=== PATIENT | female | born 2000 | race Two or more races ===

== ENCOUNTER 2024-07-25 19:40 | Emergency (ER) | payer MEDICAID, SELFPAY ==
[2024-07-25 19:41] VITALS: BMI 31.1
[2024-07-25 20:00] VITALS: BP 125/80; PULSE 73; RESP 16; TEMP 36.9; O2SAT 98
--- NOTE | 2024-07-25 20:00 | XR_ITS ---
Examination: Complete OB ultrasound, less than 14 weeks, transabdominal Date and time of exam: July 25, 2024 2038 hrs. Indications: Pelvic pain and vaginal bleeding beginning today Technique: Obstetrical ultrasound images less than 14 weeks performed via transabdominal imaging Findings: A normal shaped single intrauterine gestation is present in the uterus. pole 6.9 cm corresponds to 13 weeks 1 day gestational age Cardiac motion 144 BPM Ultrasonographic survey of visible and placental structures unremarkable. Amniotic fluid volume appears appropriate for this estimated gestational age. Right ovary 2.3 x 1.5 x 1.9 cm arterial flow Left ovary 3.2 x 1.7 x 3.6 cm arterial flow Impression: Viable intrauterine gestation 13 weeks 1 day.
--- NOTE | 2024-07-25 20:00 | XR_ITS ---
Examination: Retroperitoneal ultrasound, complete Technique: Multiple high resolution grayscale images of the retroperitoneum obtained, including kidneys and bladder. Exam date and time:July 25, 20249 hrs. Indications: Bilateral flank pain beginning several weeks ago Findings: Right kidney 11.6 x 4.4 x 4.9 cm renal cortex 1.6 cm Left kidney 12.1 x 5.4 x 5.4 cm cortex 2.4 cm Mild renal parenchymal scar formation No hydronephrosis No bladder mass or bladder calculi Bladder prevoid volume 135 cc postvoid volume 1 cc Impression: Mild bilateral renal parenchymal scar formation No hydronephrosis or renal calculi
--- NOTE | 2024-07-25 20:02 | PD.EDRME ---
Rapid Medical Screening Exam RME Arrival date/time: 07/25/24 19:40 24 year old female present to ed for c/o of vag bleeding/abd pain + I have greeted and performed a focused initial assessment of this patient. A comprehensive ED assessment and evaluation of the patient, analysis of all test results, and completion of the medical decision making process will be conducted by additional ED providers. Chief Complaint: Vaginal Bleeding Time Seen by Provider: 07/25/24 19:48 Vital signs: Vital Signs Temperature 98.4 F 07/25/24 20:00 Pulse Rate 73 07/25/24 20:00 Respiratory Rate 16 07/25/24 20:00 Blood Pressure 125/80 07/25/24 20:00 Pulse Oximetry (%) 98 07/25/24 20:00 Oxygen Delivery Method Room Air 07/25/24 20:00
[2024-07-25 20:51] LABS: Basophils % (Auto) 0 % (0-2.5); Eosinophils % (Auto) 0 % (0-10); Hematocrit 37.6 % (36.0-46.0); Hemoglobin 12.6 g/dL (12.0-16.0); Immature Granulocytes % (Auto) 0 % (0-0); Immature Granulocytes Auto 0.02 Thou/mm3 (0.00-0.00); Lymphocytes # (Auto) 2.7 Thou/mm3 (1.0-4.8); Lymphocytes % (Auto) 25 % (10-50); Mean Corpuscular HGB Conc 33.5 g/dl (31.0-37.0); Mean Corpuscular Hemoglobin 27.3 pg (25.0-35.0); Mean Corpuscular Volume 82 fL (80-100); Monocytes # (Auto) 0.7 Thou/mm3 (0.0-0.8); Monocytes % (Auto) 7 % (0-12); Neutrophils # (Auto) 7.1 Thou/mm3 (1.8-7.7); Neutrophils % (Auto) 67 % (37-80); Nucleated Red Blood Cell % 0 /100 WBC (0); Platelet Count 325 Thou/mm3 (140-440); RDW Standard Deviation 41.3 fL (36.4-46.3); Red Blood Count 4.61 Miln/mm3 (4.00-5.20); White Blood Count 10.6 Thou/mm3 (3.6-11.0)
[2024-07-25 21:28] VITALS: BP 127/81; PULSE 75; RESP 16; TEMP 36.9; O2SAT 98
[2024-07-25 21:46] LABS: Collection Type, Urine Voided; WBC,Urine 0 /hpf (0-5)
[2024-07-25 21:48] LABS: Alanine Aminotransferase 14 U/L (10-49); Albumin, Serum 4.5 gm/dL (3.5-5.0); Albumin/Globulin Ratio 1.6 (1.2-2.2); Alkaline Phosphatase 78 U/L (46-116); Anion Gap 8 (7-16); Aspartate Amino Transferase 15 U/L (0-34); BUN/Creatinine Ratio 12 Ratio (12-20); Bilirubin,Total 0.5 mg/dL (0.3-1.2); Blood Urea Nitrogen 7 mg/dL (9-23); Calcium 9.9 mg/dL (8.3-10.6); Calcium (Corrected) 9.9 mg/dL (8.5-10.1); Carbon Dioxide 22.7 mMol/L (20.0-31.0); Chloride 104 mMol/L (98-107); Creatinine (Component) 0.6 mg/dL (0.6-1.3); Estimated Creatinine Clearance 131.5 mL/min (>60); Globulin 2.9 gm/dL (2.3-3.5); Glucose 82 mg/dL (74-106); Osmolality,Calculated 267 (275-295); Potassium 3.7 mMol/L (3.4-5.1); Sodium 135 mMol/L (136-145); Total Protein 7.4 gm/dL (5.7-8.2); eGFR > 60 See Note
[2024-07-25 22:00] LABS: Bacteria,Urine Rare; Bilirubin,Urine Negative (Negative); Blood,Urine 1+ (Negative); Clarity,Urine Clear (Clear/Hazy); Color,Urine Lt-Yellow (Lt Yel-Yel); Glucose, Urine Negative (Negative); Ketones,Urine 2+ (Negative); Leukocyte Esterase,Urine Negative (Negative); Nitrite,Urine Negative (Negative); Protein,Urine Negative (Neg - Trace); RBC,Urine 1 /hpf (0-3); Squamous Epithelial Cell,Urine 1 /hpf (0-5); Urobilinogen,Urine Negative mg/dL (0.0-1.0)
[2024-07-25 22:05] LABS: Beta HCG,Quantitative 137868 mIU/mL (<5.0)
--- NOTE | 2024-07-25 22:22 | EDNOTE_ITS ---
ED OB Contraction Preg RMI/HPI General Chief complaint: Vaginal Bleeding Stated complaint: VAGINAL SPOTTING, CRAMPING Time Seen by Provider: 07/25/24 19:48 Arrival date/time: 07/25/24 19:40 24 year old female present to emergency room with c/o of vaginal spotting and cramping today. pt is currently . LOCATION: suprapubic SEVERITY: Symptoms are described as being severe with limitations on activities of daily living QUALITY: Symptoms are described as being cramping CONTEXT: The patient is unable to identify any inciting events. DURATION/TIMING: The symptoms started approximately one day ago and have been waxing/waning but always present without ever completely resolving. ASSOCIATED SYMPTOMS: The patient is unable to identify any other associated symptoms. MODIFYING FACTORS: The patient is unable to identify any alleviating or aggravating symptoms. PERTINENT ROS: denies trauma, denies domestic violence, no dysuria or hematuria, no orthostatic symptoms, no nausea or vomiting, no fevers, no anorexia, no diarrhea or constipation REVIEW OF SYSTEMS: See History of Present Illness - with the exception of those mentioned in the history of present illness, all other systems reviewed and reported as negative GENERAL: In general the patient is awake, interactive, in an emergency [facility]. HEAD/EYES/EARS/NOSE/THROAT: normo-cephalic, atraumatic, mucus membranes are moist, anicteric, palpebral conjunctiva is pink, trachea is midline. CARDIOVASCULAR: regular rate and regular rhythm, no murmurs, heart sounds are not distant, strong pulses in all four extremities that are equal and symmetric bilateral upper and lower extremities, normal capillary refill. CHEST/PULMONARY: normal chest rise and fall, good air movement, clear to auscultation bilaterally, normal inspiratory to expiratory ratios without evidence of respiratory distress. NECK: No midline/Paraspinal tenderness, no step off ROM/Strenght intact No Kernig and bruzinski sign. No trauma ABDOMEN: soft, generalized abdominal tenderness no masses appreciated BACK: normal range of motion without pain. NEUROLOGICAL: cranio-facial features are symmetric, moves all four extremities equally without obvious limitations or weakness. EXTREMITY: no tenderness to palpation over the long bones or large joints of the bilateral upper and lower extremities, no joint swelling, no joint erythema, no signs of trauma, no unilateral leg swelling and no peripheral edema. SKIN: warm, dry, well-perfused, no jaundice, no rash, no telangiectasias or petechia. PSYCH: calm, cooperative, no evidence of psychosis or agitation RME / HPI RME / HPI Narrative: 07/25/24 19:40 24 year old female present to ed for c/o of vag bleeding/abd pain + I have greeted and performed a focused initial assessment of this patient. A comprehensive ED assessment and evaluation of the patient, analysis of all test results, and completion of the medical decision making process will be conducted by additional ED providers. Related Data Previous Rx's ?Medication ?Instructions ?Recorded famotidine 40 mg tablet (Pepcid) 40 mg PO QDAY #30 tabs 09/22/23 Allergies Allergy/AdvReac Type Severity Reaction Status Date / Time No Known Allergies Allergy Verified 07/25/24 19:43 Course Course Course Narrative: This patient presents with vaginal bleeding in the first trimester. DDX includes ectopic, IUP, threatened/inevitable , along with completed a bortion. Patient is HDS and without a history of coagulopathy or infectious symptoms. Doubt alternate acute emergent pathology. Plan: bHCG, +/- basic labs, type and screen, TVUS, renal reassess Quality Measures none Orders Category Date Time Status US OB <= 14 weeks fetus Stat Exams 07/25/24 20:00 Completed US renal BI Stat Exams 07/25/24 20:00 Completed ABO/RH Type Stat Lab 07/25/24 00:19 Completed Beta HCG,Quantitative Stat Lab 07/25/24 00:19 Completed CBC Stat Lab 07/25/24 00:19 Completed CMP [Comprehensive Metabolic Panel] Stat Lab 07/25/24 00:19 Completed UA [Urinalysis] Stat Lab 07/25/24 21:22 Completed Urine Culture Stat Lab 07/25/24 21:22 Received Vital Signs Vital signs: Vital Signs Temperature 98.4 F 07/25/24 20:00 Pulse Rate 73 07/25/24 20:00 Respiratory Rate 16 07/25/24 20:00 Blood Pressure 125/80 07/25/24 20:00 Pulse Oximetry (%) 98 07/25/24 20:00 Oxygen Delivery Method Room Air 07/25/24 20:00 Vaginal Bleeding Patient data External records reviewed:: [facility] previous records Clinical information provided by:: patient Social determinants that could affect healthcare access:: none Patient has the following chronic illnesses:: none How is presenting disease/condition affected by chronic disease/condition?: no chronic disease Evaluation data The following diagnostics were reviewed and interpreted by me:: lab results and radiology exam(s) Lab and/or radiology exams considered but not ordered:: none Interpretation Summary: US: Right kidney 11.6 x 4.4 x 4.9 cm renal cortex 1.6 cm Left kidney 12.1 x 5.4 x 5.4 cm cortex 2.4 cm Mild renal parenchymal scar formation No hydronephrosis No bladder mass or bladder calculi Bladder prevoid volume 135 cc postvoid volume 1 cc Impression: Mild bilateral renal parenchymal scar formation No hydronephrosis or renal calculi A normal shaped single intrauterine gestation is present in the uterus. pole 6.9 cm corresponds to 13 weeks 1 day gestational age Cardiac motion 144 BPM Ultrasonographic survey of visible and placental structures unremarkable. Amniotic fluid volume appears appropriate for this estimated gestational age. Right ovary 2.3 x 1.5 x 1.9 cm arterial flow Left ovary 3.2 x 1.7 x 3.6 cm arterial flow Impression: Viable intrauterine gestation 13 weeks 1 day. hc cbc/cmp no acute finding urine no infection Medications / Prescriptions Medications or Prescriptions considered but not ordered:: none Medication administrations:: none Consultations Consultation(s) initiated? (list below): No Diagnosis Vaginal Bleeding Differential Diagnosis: missed , threatened , dysfunctional uterine bleeding, incomplete , ectopic without intrauterine , vaginal bleeding and other (uti ) Most likely diagnosis given after review of the tests above:: , vaginal bleeding Admission Indicated Admission indicated?: not indicated Admission Request Was there a request for admission?: No Disposition Plan Disposition Plan: Discharge Discharge Attestation Discharge Attestation: The patient and all family members were given an opportunity to ask questions and understood the discharge instructions. Discharge instructions specifically effects, indications for sooner follow up or return to the emergency department, and the expected course of current diagnosis. Patient condition: Stable Discharge Plan Plan Patient Disposition: HOME (Self Care) Health Concerns: follow up with your OB as directed Return to ED if symptoms worsen Prescriptions/Referrals Prescriptions/Med Rec: No Action famotidine [Pepcid] 40 mg tablet 40 mg PO QDAY Qty: 30 0RF Referrals: Tony Hagen MD [Primary Care Provider] - In 1 week Problem List Clinical Impression: Vaginal bleeding during Patient/Caregiver Discharge Instructions Education Materials: Bleeding During Early Print Language: Setswana Stand Alone Forms: [employer] Award Info., Patient Portal Info Letter
== END 2024-07-25 22:44 | disposition home or self-care (01) ==
PROVIDERS: Physician Assistant; Emergency Provider Emergency Medicine; PCP Family Medicine
DX: O20.9 Hemorrhage in early pregnancy, unspecified (principal); Z3A.13 13 weeks gestation of pregnancy
CPT/HCPCS: 36415; 76770; 76801; 80053; 81001; 84702; 85025; 86900; 86901; 87086; 99284

== ENCOUNTER 2024-08-18 17:37 | Emergency (ER) | payer MEDICAID, SELFPAY ==
[2024-08-18 18:58] VITALS: BP 113/75; PULSE 97; RESP 20; TEMP 38; O2SAT 97; BMI 30.2
--- NOTE | 2024-08-18 19:04 | PD.EDURI ---
Upper Respiratory Inf. RME/HPI General Chief Complaint: Flu Like Symptoms Stated Complaint: FEVER, COUGH, FARAH, BODYACHES Time Seen by Provider: 08/18/24 17:53 Arrival date/time: 08/18/24 17:37 24-year-old female who is 16 weeks gestation reports with complaints of cough congestion body aches fever and chills x 2 days. Patient denies any shortness of breath chest pain abnormal vaginal bleeding or pelvic pain. Patient states that she was advised by her [employer] SALES REPRESENTATIVE to come to the emergency room Limitations: no limitations Related Data Previous Rx's ?Medication ?Instructions ?Recorded famotidine 40 mg tablet (Pepcid) 40 mg PO QDAY #30 tabs 09/22/23 Allergies Allergy/AdvReac Type Severity Reaction Status Date / Time No Known Allergies Allergy Verified 07/25/24 19:43 Review of Systems Constitutional Constitutional: Denies chills, Reports fever(s) and Denies headache(s) ENT Ears, Nose, Mouth, and Throat: Denies headache(s), Denies sinus pressure, Denies sore throat and Denies vertigo Cardiovascular Cardiovascular: Denies chest pain and Denies dyspnea Respiratory Respiratory: Reports cough and Denies dyspnea Gastrointestinal Gastrointestinal: Denies abdominal pain, Denies nausea and Denies vomiting Musculoskeletal Musculoskeletal: Denies back pain and Reports myalgias Integumentary/Breasts Skin/Breast: Denies erythema and Denies rash Neurologic Neurologic: Denies headache(s) and Denies vertigo Hematologic/Lymphatic Hematologic/Lymphatic: Denies easy bleeding and Denies easy bruising Past Medical History Past Medical History NEUROLOGIC: Negative Seizures CARDIAC: Negative Congestive Heart Failure RESPIRATORY: Negative Chronic Obstructive Pulmonary Disease (COPD) GENITOURINARY: Negative Renal Disease ENDOCRINE: Negative Diabetes Mellitus Type 1 or Diabetes Mellitus Type 2 OTHER HISTORY: Negative Blood Transfusions or Anesthesia Reactions Social History SMOKING STATUS: Never smoker ED Exam General Limitations: Present no limitations General appearance: Present alert and in no apparent distress Head Head exam: Present atraumatic Eye Eye exam: Present normal appearance, PERRL and EOMI ENT ENT exam: Present normal exam, normal oropharynx and mucous membranes moist Neck Neck exam: Present normal inspection, full ROM and trachea midline Chest Chest inspection: Present normal inspection and symmetric chest wall rise Respiratory Respiratory exam: Present normal lung sounds bilaterally Cardiovascular Cardiovascular exam: Present regular rate, normal rhythm and normal heart sounds Abdominal Exam Abdominal exam: Present soft and normal bowel sounds Extremities Exam Extremities exam: Present normal inspection and full ROM Back Exam Back exam: Present normal inspection and full ROM Neurological Exam Neurological exam: Present alert, oriented X3 and CN II-XII intact Psychiatric Psychiatric exam: Present normal affect and normal mood Skin Skin exam: Present warm, dry, intact and normal color Course Course Course Narrative: 24-year-old female who is 16 weeks gestation reports with complaints of bodyaches fever chills. She is positive for influenza B she is stable not on toxic appearing with stable vital signs and no respiratory distress she will be discharged home advised to call [employer] SALES REPRESENTATIVE for [id number] medications that is okay for her to take in the meantime she can take Tylenol for fever. Patient verbalized under Quality Measures none Orders Category Date Time Status Bedside COVID-19 Antigen Test NOW Care 08/18/24 19:03 Active Bedside Influenza A&B Antigen Test NOW Care 08/18/24 19:03 Active Vital Signs Vital signs: Vital Signs Temperature 100.4 F 08/18/24 18:58 Pulse Rate 97 08/18/24 18:58 Respiratory Rate 20 08/18/24 18:58 Blood Pressure 113/75 08/18/24 18:58 Pulse Oximetry (%) 97 08/18/24 18:58 Oxygen Delivery Method Room Air 08/18/24 18:58 Upper Respiratory Infection Patient data External records reviewed:: None Clinical information provided by:: patient Social determinants that could affect healthcare access:: none Patient has the following chronic illnesses:: none How is presenting disease/condition affected by chronic disease/condition?: no chronic disease Evaluation data The following diagnostics were reviewed and interpreted by me:: lab results (none) Lab and/or radiology exams considered but not ordered:: none Interpretation Summary: flu b Medications / Prescriptions Medications or Prescriptions considered but not ordered:: none Medication administrations:: none Consultations Consultation(s) initiated? (list below): No Diagnosis Upper Respiratory Differential Diagnosis: upper respiratory infection, viral infection and influenza Most likely diagnosis given after review of the tests above:: Flu Admission Indicated Admission indicated?: not indicated Admission Request Was there a request for admission?: No Disposition Plan Disposition Plan: Discharge Discharge Attestation Discharge Attestation: The patient and all family members were given an opportunity to ask questions and understood the discharge instructions. Discharge instructions specifically effects, indications for sooner follow up or return to the emergency department, and the expected course of current diagnosis. Patient condition: Stable Discharge Plan Plan Patient Disposition: HOME (Self Care) Prescriptions/Referrals Prescriptions/Med Rec: No Action famotidine [Pepcid] 40 mg tablet 40 mg PO QDAY Qty: 30 0RF Referrals: Tony Hagen MD [Primary Care Provider] - In 1 week Problem List Clinical Impression: Influenza B Patient/Caregiver Discharge Instructions Discharge Activity: activity as tolerated Education Materials: ED Influenza (Adult) Additional Instructions: You can take medication such as Tylenol for fever but you should follow-up with your [employer] SALES REPRESENTATIVE for guidance on [id number] medications you can take for influenza. Hydrate well follow-up with your primary care as needed Print Language: [place] Stand Alone Forms: [employer] Award Info., Patient Portal Info Letter
[2024-08-18 19:35] VITALS: RESP 18
== END 2024-08-18 19:36 | disposition home or self-care (01) ==
PROVIDERS: Emergency Provider Emergency Medicine; PCP Family Medicine
DX: O99.512 Diseases of the respiratory system complicating pregnancy, second trimester (principal); J10.1 Influenza due to other identified influenza virus with other respiratory manifestations; Z3A.16 16 weeks gestation of pregnancy
CPT/HCPCS: 87400; 87811; 99283

== ENCOUNTER 2024-10-27 09:51 | Observation (INO) | payer MEDICAID, SELFPAY ==
[2024-10-27] VITALS (16 sets, daily range): BP systolic 109–113; BP diastolic 64–72; PULSE 70–92; RESP 18–95; TEMP 36.8; O2SAT 94–95; BMI 32.6
== END 2024-10-27 10:55 | disposition home or self-care (01) ==
PROVIDERS: Admitting Provider Student in an Organized Health Care Education/Training Program; Visit Provider Student in an Organized Health Care Education/Training Program
DX: O26.892 Other specified pregnancy related conditions, second trimester (principal); Z3A.26 26 weeks gestation of pregnancy; R10.9 Unspecified abdominal pain
CPT/HCPCS: 59025; 59899

== ENCOUNTER 2024-11-25 14:33 | Observation (INO) | payer MEDICAID, SELFPAY ==
[2024-11-25] VITALS (12 sets, daily range): BP systolic 109; BP diastolic 70; PULSE 77–91; RESP 18–97; TEMP 36.3–36.4; O2SAT 96–99; BMI 32.8
[2024-11-25 15:48] LABS: Collection Type, Urine Clean Catch; WBC,Urine 0 /hpf (0-5)
[2024-11-25 16:07] LABS: Bilirubin,Urine Negative (Negative); Blood,Urine 1+ (Negative); Clarity,Urine Clear (Clear/Hazy); Color,Urine Yellow (Lt Yel-Yel); Glucose, Urine Negative (Negative); Ketones,Urine Negative (Negative); Leukocyte Esterase,Urine Negative (Negative); Nitrite,Urine Negative (Negative); PH,Urine 6.5 (5.0-7.0); Protein,Urine Trace (Neg - Trace); RBC,Urine 11 /hpf (0-3); Specific Gravity,Urine 1.028 (1.001-1.035); Squamous Epithelial Cell,Urine 6 /hpf (0-5); Urobilinogen,Urine Negative mg/dL (0.0-1.0)
[2024-11-25] MEDS: ACETAMINOPHEN 325 MG TABLET 975 MG PO (16:26)
== END 2024-11-25 16:54 | disposition home or self-care (01) ==
PROVIDERS: Admitting Provider Student in an Organized Health Care Education/Training Program; Visit Provider Student in an Organized Health Care Education/Training Program
DX: O26.893 Other specified pregnancy related conditions, third trimester (principal); Z3A.30 30 weeks gestation of pregnancy; M54.9 Dorsalgia, unspecified
CPT/HCPCS: 59025; 59899; 81001; A9270

== ENCOUNTER 2025-02-01 03:35 | Inpatient (IN) | payer MEDICAID, SELFPAY ==
[2025-02-01] VITALS (244 sets, daily range): BP systolic 82–172; BP diastolic 51–104; PULSE 64–169; RESP 16–99; TEMP 36.8–37.3; O2SAT 84–100; BMI 34.9
--- NOTE | 2025-02-01 04:30 | XR_ITS ---
Examination: Complete OB ultrasound greater than 14 weeks Date and time of exam: February 01, 2025 0440 hours INDICATIONS: Pelvic contractions, patient in active labor Findings: Viable intrauterine single fetus with single amniotic sac presentation cephalic Cardiac motion 147 BPM Placenta fundal grade 2 Umbilical cord insertion seen Amniotic fluid index 3.1 cm Cervix 3.3 cm closed Ovaries obscured by bowel gas. Composite estimated gestational age based on BPD, head circumference, abdominal circumference, femur length is 37 weeks 5 days Estimated weight 3333.9 g. Survey of intracranial anatomy, spinal anatomy, abdominal anatomy, four-chamber heart performed with no abnormalities identified. Impression: Viable intrauterine gestation cephalic presentation.
[2025-02-01 05:11] LABS: Basophils # (Auto) 0.0 Thou/mm3 (0.0-0.2); Basophils % (Auto) 0 % (0-2.5); Eosinophils # (Auto) 0.0 Thou/mm3 (0.0-0.5); Eosinophils % (Auto) 0 % (0-10); Hematocrit 37.7 % (36.0-46.0); Hemoglobin 13.0 g/dL (12.0-16.0); Immature Granulocytes Auto 0.07 Thou/mm3 (0.00-0.00); Lymphocytes # (Auto) 2.1 Thou/mm3 (1.0-4.8); Lymphocytes % (Auto) 12 % (10-50); Mean Corpuscular HGB Conc 34.5 g/dl (31.0-37.0); Mean Corpuscular Hemoglobin 28.8 pg (25.0-35.0); Mean Corpuscular Volume 84 fL (80-100); Monocytes # (Auto) 1.2 Thou/mm3 (0.0-0.8); Monocytes % (Auto) 7 % (0-12); Neutrophils # (Auto) 13.5 Thou/mm3 (1.8-7.7); Neutrophils % (Auto) 80 % (37-80); Nucleated Red Blood Cell # 0.00 Thou/mm3 (0.00-0.00); Nucleated Red Blood Cell % 0 /100 WBC (0); Platelet Count 301 Thou/mm3 (140-440); RDW Standard Deviation 42.4 fL (36.4-46.3); Red Blood Count 4.51 Miln/mm3 (4.00-5.20); White Blood Count 16.9 Thou/mm3 (3.6-11.0)
[2025-02-01] MEDS: RINGERS LACTATED 1000 ML 1,000 ML 100 ML IV ×2 (05:12→13:45)
[2025-02-01] MEDS: fentaNYL CIT INJ 50 mCg/ML AMP 2ML 100 MCG IVP ×2 (05:12→16:14)
--- NOTE | 2025-02-01 05:36 | PRELIM_ITS ---
Obstetric ultrasound. February 01, 2025 0440 hours Clinical history: MD ORDER. Comparison:No prior study is available for comparison. Findings: There is a gravid uterus with a live fetus in cephalicpresentation of mean gestational age 37weeks and 5days (by biometry). cardiac activity is present at a heart rate of 147beats per minute. The placenta is fundalin location, maturity grade 2. There is no evidence of placenta previa or ret roplacental hemorrhage. Amniotic fluid is adequate (SHIMA = 3.1cm). Estimated weight is 3334grams+/- 493grams. Estimated due date by ultrasound is February 17, 2025 Impression: Gravid uterus with a single live fetus in in cephalicpresentation of mean gestational age 37weeks and 5days. Oligohydramnios. Recommend clinical correlation. Report Electronically Signed By: Gurvinder Ferguson 02/01/2025 5:35:36 AM [EST]
[2025-02-01 05:43] LABS: Syphilis Nonreactive (Nonreactive)
[2025-02-01] MEDS: OXYTOCIN in NS 30 units 30 UNIT/500 ML BAG IV (08:28)
[2025-02-01 08:29] LABS: Collection Type, Urine Clean Catch
[2025-02-01 08:39] LABS: Bilirubin,Urine Negative (Negative); Blood,Urine 1+ (Negative); Clarity,Urine Clear (Clear/Hazy); Color,Urine Lt-Yellow (Lt Yel-Yel); Glucose, Urine Negative (Negative); Ketones,Urine Negative (Negative); Leukocyte Esterase,Urine Negative (Negative); Nitrite,Urine Negative (Negative); PH,Urine 7.0 (5.0-7.0); Protein,Urine Negative (Neg - Trace); RBC,Urine 3 /hpf (0-3); Specific Gravity,Urine 1.012 (1.001-1.035); Squamous Epithelial Cell,Urine 1 /hpf (0-5); Urobilinogen,Urine Negative mg/dL (0.0-1.0); WBC,Urine 1 /hpf (0-5)
[2025-02-01 08:52] LABS: INR 0.9 (0.9-1.3); Partial Thromboplastin Time 26.4 Seconds (22.0-36.0); Prothrombin Time 10.3 Seconds (9.0-12.2)
[2025-02-01 08:57] LABS: Creatinine,Random Urine 51 mg/dL (30-125); Protein Total, Random Urine 9 mg/dL (1-14)
[2025-02-01 09:14] LABS: Alanine Aminotransferase 8 U/L (10-49); Albumin, Serum 3.6 gm/dL (3.5-5.0); Albumin/Globulin Ratio 1.3 (1.2-2.2); Alkaline Phosphatase 141 U/L (46-116); Anion Gap 13 (7-16); Aspartate Amino Transferase 15 U/L (0-34); BUN/Creatinine Ratio 10 Ratio (12-20); Bilirubin,Total 0.6 mg/dL (0.3-1.2); Blood Urea Nitrogen 6 mg/dL (9-23); Calcium 9.2 mg/dL (8.3-10.6); Calcium (Corrected) 9.5 mg/dL (8.5-10.1); Carbon Dioxide 23.1 mMol/L (20.0-31.0); Chloride 103 mMol/L (98-107); Creatinine (Component) 0.6 mg/dL (0.6-1.3); Estimated Creatinine Clearance 143.9 mL/min (>60); Globulin 2.8 gm/dL (2.3-3.5); Glucose 98 mg/dL (74-106); Osmolality,Calculated 275 (275-295); Potassium 3.7 mMol/L (3.4-5.1); Sodium 139 mMol/L (136-145); Total Protein 6.4 gm/dL (5.7-8.2); Uric Acid 4.7 mg/dL (3.1-7.8); eGFR > 60 See Note
[2025-02-01 09:26] LABS: Fibrinogen 624 mg/dL (175-375)
--- NOTE | 2025-02-01 11:46 | PD.LDHP ---
Documentation for date of: 02/01/25 OB Labor/Induct. HPI History of Present Illness : 2 Para: 0 Term pregnancies: 0 pregnancies: 0 Living children: 0 History of Abortions: Spontaneous and Elective: 1 History of Vaginal deliveries: 0 History of sections: No History of : No Date of last menstrual period: 04/27/24 RENÉE: 02/01/25 Gestational Age (weeks): 40 Gestational Age (days): 0 Gestational age based on last menstrual period: 40 History of present illness: 25 y/o @40w0d admitted in early latent labor. Cam denies any leaking or bleeding during contractions . has been uncomplicated. History of Present Dating criteria: LMP confirmed by 1st trimester US Adequate Care: Yes Abnormal ultrasound findings: anatomy normal Labs Labs: Negative: RPR, Hepatitis B, Rubella Titre, HIV, Chlamydia, Gonorrhea and Group Beta Strep and Unknown: Herpes Type 1, Herpes Type 2 and Covid-19 Narrative: gtt WNL Past Medical History Surgical History SURGICAL: Negative Section Meds Home Medications and Allergies Home Medications ?Medication ?Instructions ?Recorded ?Confirmed ?Type vits no.126-ferrous fum 1 tab PO .q day 10/27/24 02/01/25 History 28 mg iron-folic acid 800 mcg tablet (Classic ) Allergies Allergy/AdvReac Type Severity Reaction Status Date / Time No Known Allergies Allergy Verified 02/01/25 05:53 OB Exam Physical Exam Vital signs: Temp Pulse Resp BP Pulse Ox O2 Del Method 98.7 F 77 18 117/64 98 Room Air 02/01/25 10:30 02/01/25 11:36 02/01/25 10:30 02/01/25 11:36 02/01/25 11:45 02/01/25 10:30 Constitutional Constitutional: no acute distress Routine HEENT Exam Head: Present normocephalic and atraumatic Eye: Present EOMI and PERRL ENT: Present mucous membranes moist Routine Neck Exam Neck: Present supple and trachea midline Routine Cardiovascular Exam Cardiovascular: Present RRR Routine Abdominal Exam Abdominal: Present soft and normoactive bowel sounds Detailed Labor and Delivery Exam Dilation (cm): 2-3 Comments: Regular contractions Bulging bag FHT Cat 1 Routine Extremities Exam Extremities: Present full ROM Routine Skin Exam Skin: Present intact, dry and warm Routine Neurological Exam Neurological: Present alert, oriented X3 and CN II-XII intact Routine Psychiatric Exam Psychiatric: Present normal affect and normal thought process OB Results Labs 02/01/25 04:35 02/01/25 07:29 Labs: Short CBC 02/01/25 Range/Units 04:35 WBC 16.9 H (3.6-11.0) Thou/mm3 Hgb 13.0 (12.0-16.0) g/dL Hct 37.7 (36.0-46.0) % Plt Count 301 (140-440) Thou/mm3 BMP 02/01/25 07:29 Sodium 139 Potassium 3.7 Chloride 103 Carbon Dioxide 23.1 BUN 6 L Creatinine 0.6 Glucose 98 Calcium 9.2 Liver Function 02/01/25 Range/Units 07:29 Total Bilirubin 0.6 (0.3-1.2) mg/dL AST 15 (0-34) U/L ALT 8 L (10-49) U/L Alkaline Phosphatase 141 H (46-116) U/L Albumin 3.6 (3.5-5.0) gm/dL Urine 02/01/25 Range/Units 06:40 Urine Color Lt-Yellow (Lt Yel-Yel) Urine Clarity Clear (Clear/Hazy) Urine pH 7.0 (5.0-7.0) Ur Specific [place] 1.012 (1.001-1.035) Urine Protein Negative (Neg - Trace) Urine Glucose (UA) Negative (Negative) Impressions Impression: 25 y/o @40w, for agugmentation of labor gbs-ve Cephalic on Ultrasound on admission EFW [id number] OB Assessment & Plan Additional Plan Additional Plan Comment: Epidural when the patient desires Pitocin to be started
--- NOTE | 2025-02-01 13:18 | PD.LDPN ---
Documentation for date of: 02/01/25 OB Labor Progress Note Pelvic Exam Dilation (cm): 8.5 Effacement (%): 100 station: 0 Amniotic membrane status: Ruptured Comments: forebag ruptured Contractions Monitor mode: External Contraction frequency: 2-3 Contraction intensity: Moderate Status status: Category l Assessment and Plan Comments: continue pitocin anticipate vaginal delivery
[2025-02-01] MEDS: MINERAL OIL 30 ML UDC TOP (16:14)
[2025-02-01] MEDS: BENZO/LANO/ALOE (Dermoplast) 60 GM CAN 1 SPRAY TOP (16:15)
[2025-02-01] MEDS: LIDOCAINE HCL 1% 20 ML VIAL INFL (16:15)
[2025-02-01] MEDS: OXYTOCIN in NS 20 units 20 UNIT/1,000 ML BAG 125 UNIT IV (16:17)
[2025-02-01] MEDS: DEXTROSE 5%-LACTATED RINGERS 1,000 ML 999 ML IV (16:17)
[2025-02-01] MEDS: TRANEXAMIC ACID 1,000 MG IVPB 1,000 MG/100 ML BAG 200 MG IV (16:36)
[2025-02-01] MEDS: IBUPROFEN TAB 400 MG TABLET 800 MG PO (16:50)
[2025-02-01 23:23] LABS: Basophils # (Auto) 0.0 Thou/mm3 (0.0-0.2); Basophils % (Auto) 0 % (0-2.5); Eosinophils # (Auto) 0.0 Thou/mm3 (0.0-0.5); Eosinophils % (Auto) 0 % (0-10); Hematocrit 30.9 % (36.0-46.0); Hemoglobin 10.7 g/dL (12.0-16.0); Immature Granulocytes Auto 0.09 Thou/mm3 (0.00-0.00); Lymphocytes # (Auto) 1.9 Thou/mm3 (1.0-4.8); Lymphocytes % (Auto) 9 % (10-50); Mean Corpuscular HGB Conc 34.6 g/dl (31.0-37.0); Mean Corpuscular Hemoglobin 28.8 pg (25.0-35.0); Mean Corpuscular Volume 83 fL (80-100); Monocytes # (Auto) 1.8 Thou/mm3 (0.0-0.8); Monocytes % (Auto) 8 % (0-12); Neutrophils # (Auto) 18.3 Thou/mm3 (1.8-7.7); Neutrophils % (Auto) 83 % (37-80); Nucleated Red Blood Cell # 0.00 Thou/mm3 (0.00-0.00); Nucleated Red Blood Cell % 0 /100 WBC (0); Platelet Count 255 Thou/mm3 (140-440); RDW Standard Deviation 42.3 fL (36.4-46.3); Red Blood Count 3.71 Miln/mm3 (4.00-5.20); White Blood Count 22.1 Thou/mm3 (3.6-11.0)
[2025-02-02] VITALS: BP 120/76; PULSE 82; RESP 18; TEMP 36.9; O2SAT 96
[2025-02-02 04:35] VITALS: BP 110/74; PULSE 88; RESP 18; TEMP 37.1; O2SAT 98
[2025-02-02] MEDS: IBUPROFEN TAB 400 MG TABLET 800 MG PO (04:45)
[2025-02-02 07:45] VITALS: BP 114/80; PULSE 84; RESP 18; TEMP 37; O2SAT 98
--- NOTE | 2025-02-02 08:08 | ESPR_ITS ---
Subjective Subjective Interval history: Delivery type: Patient doing well this morning. No acute complaints. Ambulating, tolerating p.o. and voiding without difficulty. HTN/Pre-Eclampsia screen: No chest pain, shortness of breath, headache, visual changes, epigastric or right upper quadrant pain. Breast-feeding, lochia diminishing. Bowel: Flatus+/ BM+ Exam Vital Signs Temp Pulse Resp BP Pulse Ox O2 Del Method 98.8 F 88 18 110/74 98 Room Air 02/02/25 04:35 02/02/25 04:35 02/02/25 04:35 02/02/25 04:35 02/02/25 04:35 02/02/25 04:35 Constitutional Constitutional: no acute distress Routine HEENT Exam Head: Present normocephalic and atraumatic Eye: Present EOMI and PERRL ENT: Present mucous membranes moist Routine Neck Exam Neck: Present supple and trachea midline Routine Respiratory Exam Respiratory: Present chest non-tender, lungs clear, normal breath sounds and no resp distress Routine Cardiovascular Exam Cardiovascular: Present RRR Routine Abdominal Exam Abdominal: Present soft and normoactive bowel sounds Routine Extremities Exam Extremities: Present full ROM Routine Skin Exam Skin: Present intact, dry and warm Routine Neurological Exam Neurological: Present alert, oriented X3 and CN II-XII intact Routine Psychiatric Exam Psychiatric: Present normal affect and normal thought process Objective Labs 02/01/25 23:11 02/01/25 07:29 Labs: Laboratory Results - last 24 hr 02/01/25 02/01/25 02/01/25 06:40 07:29 23:11 WBC 22.1 H D RBC 3.71 L Hgb 10.7 L D Hct 30.9 L MCV 83 MCH 28.8 MCHC 34.6 RDW Std Deviation 42.3 Plt Count 255 D Neut % (Auto) 83 H Lymph % (Auto) 9 L [place] % (Auto) 8 Eos % (Auto) 0 Baso % (Auto) 0 Neut # (Auto) 18.3 H Lymph # (Auto) 1.9 [place] # (Auto) 1.8 H Eos # (Auto) 0.0 Baso # (Auto) 0.0 Immature Gran # (Auto) 0.09 H Absolute Nucleated RBC 0.00 Immature Gran % 0 Nucleated RBC % 0 PT 10.3 INR 0.9 APTT 26.4 Fibrinogen 624 H* Sodium 139 Potassium 3.7 Chloride 103 Carbon Dioxide 23.1 Anion Gap 13 BUN 6 L Creatinine 0.6 Estim Creat Clear Calc 143.9 eGFR > 60 BUN/Creatinine Ratio 10 L Glucose 98 Calculated Osmolality 275 Uric Acid 4.7 Calcium 9.2 Corrected Calcium 9.5 Total Bilirubin 0.6 AST 15 ALT 8 L Alkaline Phosphatase 141 H Total Protein 6.4 Albumin 3.6 Globulin 2.8 Albumin/Globulin Ratio 1.3 Ur Collection Type Clean Catch Urine Color Lt-Yellow Urine Clarity Clear Urine pH 7.0 Ur Specific [place] 1.012 Urine Protein Negative Urine Glucose (UA) Negative Urine Ketones Negative Urine Blood 1+ A Urine Nitrite Negative Urine Bilirubin Negative Urine Urobilinogen (Auto) Negative Ur Leukocyte Esterase Negative Urine RBC 3 Urine WBC 1 Ur Squamous Epith Cells 1 Urine Bacteria None Ur Random Creatinine 51 U Random Total Protein 9 Assessment & Plan Problem List (1) Normal delivery: Status: Acute (2) (normal spontaneous vaginal delivery): Status: Acute Assessment and plan: PPD/POD#1 1. Continue routine care 2. Transition to PO meds. 3. Encourage to ambulate/ breast-feed 4. Anticipate discharge home today. Time Spent With Patient Time: Total time spent is greater than 50% in coordination of care (as documented) at patient's floor/unit and/or counseling patient:
--- NOTE | 2025-02-02 08:10 | ESDS_ITS ---
DS: Providers Provider Date of admission: 02/01/25 04:34 Primary care physician: Physician No Primary/Family Admitting Provider: Jillian Alvarez MD Attending Provider on Admission: Jake Robb MD Consults: 02/01/25 16:38 Referral Routine Comment: Attending Provider on DC: Jake Robb MD Discharging Provider: Jake Robb MD DS: Diagnosis Discharge Diagnosis (1) (normal spontaneous vaginal delivery): Status: Acute (2) Normal delivery: Status: Acute Problem List Completed Was Problem List Reviewed/Reconciled?: Yes Summary/Hosp Course Brief History: 25 y/o @40w0d admitted in early latent labor. Patinet denies any leaking or bleeding during contractions . has been uncomplicated. Peripartum Data Delivery Method: Operative Vaginal Delivery Episiotomy Description: None Time Spent with Patient Time attestation: Total time spent providing and/or coordinating discharge services: Exam Vital Signs Temp Pulse Resp BP Pulse Ox O2 Del Method 98.8 F 88 18 110/74 98 Room Air 02/02/25 04:35 02/02/25 04:35 02/02/25 04:35 02/02/25 04:35 02/02/25 04:35 02/02/25 04:35 Discharge Plan Plan Patient Disposition: HOME (Self Care) Patient condition on transfer: Stable Prescriptions/Referrals Prescriptions/Med Rec: New ibuprofen 400 mg Tablet 800 mg PO Q8H PRN (Reason: See Comments) 10 Days Qty: 40 0RF docusate sodium [Stool Softener] 100 mg capsule 100 mg PO QDAY 30 Days Qty: 30 0RF Continued Classic 28 mg iron- 800 mcg tablet 1 tab PO .q day Patient Comments: TAKE 1 TABLET BY MOUTH EVERY DAY famotidine [Pepcid] 40 mg tablet 40 mg PO QDAY Qty: 30 0RF Referrals: Jillian Alvarez MD [Physician] - No Primary/Family,Physician [Primary Care Provider] - Patient/Caregiver Discharge Instructions Meds to Beds: Yes Education Materials: After a Vaginal , After Delivery Concerns, Breast Care After , Incision Care After Vaginal , Nutrition While , Understanding Depression, : Caring for Yourself, Feel Healthy After Print Language: Hungarian Stand Alone Forms: [employer] Award Info., Patient Portal Info Letter Discharge Order Discharge Orders: Discharge (Routine); Ordered 02/02/25 Ordered By: Jake Robb Planned Discharge Date 02/02/25
[2025-02-02] MEDS: ACETAMINOPHEN 325 MG TABLET 650 MG PO (10:00)
--- NOTE | 2025-02-02 14:41 | PD.LDDELS ---
Vacuum Assisted Delivery General Patient Counseled by physician:: Yes Informed consent to patient:: Yes Estimated weight:: 3400 g Cervical dilation:: fully dilated station:: +3 position:: OA Molding:: Yes Caput:: Yes Vacuum Application Vacuum type:: Mityvac Vacuum application:: flexing median Maximum pressure (cm Hg):: 41 Cup Placement Flexion point identified:: Yes Cup approp. for head position:: Yes Maternal tissue excluded:: Yes Vacuum Procedure Number of pulls (contractions):: 3 Number of pop-offs:: 0 Vacuum reduced between pulls:: Yes Advancement made each pull:: Yes Additional Comments Additional comments: indication: maternal exhaustion Data (Zheng) Data Hx Section: No : 2 Term: 0 : 0 Livin Abortions: Spontaneous & Theraputic: 1 Delivery Data (Zheng) Labor Data Initiation of labor: Augmentation Induction/Augmentation Agent: Pitocin ROM date: 02/01/25 ROM time: 10:50 Amniotic membrane rupture type: Spontaneous Amniotic fluid description: Blood Tinged Delivery Data Onset of labor date: 02/01/25 Onset of labor time: 05:30 Complete dilation date: 02/01/25 Complete dilation time: 14:00 delivery date: 02/01/25 delivery time: 16:04 Gestational age (weeks): 40 Placenta delivery date: 02/01/25 Placenta delivery time: 16:07 Stage 1 total time: Labor - Stage 1 Duration 8 hours and 30 minutes Delivered by: Jillian Alvarez Delivery nurse: Kanu Lee RN [facility] nurse: ELLIS Fernandez Support person(s) at delivery: Nya VAUGHN RN TRV MD IBRAHIMA [facility] [employer] [facility] Isabella CAMPBELL RN Delivery Method Delivery method: Operative Vaginal Delivery Presentation: Vertex Anesthesia Type Anesthesia Type: Local and Epidural Placenta Placenta delivery description: Spontaneous Episiotomy Episiotomy description: None Umbilical Cord cord description: 3 Vessels [place] Data (Zheng) Data order: 1 [place]'s gender: Female Identification band number: [id number] weight (gms): 3235 g Weight (pounds): 7 lbs and 2.1 ozs length: 51 cm 1 minute: 7 5 minutes: 9 10 minutes: 9
== END 2025-02-02 17:20 | disposition home or self-care (01) | DRG 560 ==
LOC: S4NX 02-02 06:08 → S4SX 02-02 06:08
PROVIDERS: Admitting Provider Student in an Organized Health Care Education/Training Program; Visit Provider Obstetrics & Gynecology
DX: O48.0 Post-term pregnancy (principal); Z37.0 Single live birth; Z3A.40 40 weeks gestation of pregnancy; O75.81 Maternal exhaustion complicating labor and delivery
CPT/HCPCS: 36415; 59025; 59409; 76805; 80053; 81001; 82570; 84156; 84550; 85025; 85384; 85610; 85730; 86780; 86850; 86900; 86901; 94762; J2590; J2795; J3010; J3490; J7120; J7121; A9270